=== PATIENT | male | born 1985 | race Caucasian/White ===

== ENCOUNTER 2018-10-01 11:40 | Emergency (ER) | payer OTHER ==
[2018-10-01] MEDS ORDERED: TETRACAINE 0.5% OPHTH SOLN 2 ML BOTTLE ONE (11:44)
[2018-10-01] MEDS ORDERED: FLUORESCEIN NA 1 EA STRIP ONE (11:44)
--- NOTE | 2018-10-01 11:50 | PDOC ---
Attending Attestation - Resident Resident Name: JudiLucía - ED Attending Attestation I have performed the following: I have examined & evaluated the patient, The case was reviewed & discussed with the resident, I agree w/resident's findings & plan, Exceptions are as noted - HPI HPI: 10/01/18 11:51 33yo M with no sig PMH presents to the ED with acute onset L eye pain since 7pm yesterday. 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 Endorses tearing in L eye, has photophobia. Did not note anything got into his eye. Denies blurry vision. Not a contacts wearer. Denies associted headache, focal weakness/numbness. No treatments tried. No fever, chills, cp/sob, abd pain, n/v/d. - Physicial Exam PE: 10/01/18 11:53 well appearing male NAD +2mm round fluorescein stain draft roller picker at 7 o'clock over iris OU 20/20 VA +conjunctival injection - Medical Decision Making 10/01/18 12:21 33yo M presents to the ED with L eye FB sensation, photophobia. Exam consistent with corneal abrasion. On eyelid eversion, no FB noted. No ulcers noted, pt is not contacts wearer. Well appearing othrewise with normal VA. Plan to give polytrrm gtt q6hrs for 7 days. pt has insurance claims adjuster to f/u with in 2-3 days. Return precautions given I discussed the physical exam findings, ancillary test results and final diagnoses with the patient. I answered all of the patient's questions. The patient was satisfied with the care received and felt comfortable with the discharge plan and treatment plan. The patient will call their primary care physician within 24 hours to arrange follow-up and will return to the Emergency Department with any new, persistent or worsening symptoms.
[2018-10-01 12:01] VITALS: BP 129/78; PULSE 83; TEMP 98; BMI 26.4
--- NOTE | 2018-10-01 12:16 | PDOC ---
History of Present Illness - General Chief Complaint: Eye Problem Stated Complaint: LEFT EYE FB SENSATION, DISCOMFORT Time Seen by Provider: 10/01/18 11:43 - History of Present Illness Initial Comments: 10/01/18 12:00 The patient is a 33 year old male with a PMH of seasonal allergies who presents to our ED c/o L eye pain. 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 Endorse associated tearing. Denies fevers/chills, visual changes, photophobia as well as trauma. Patient states he took 3 Advil last night and went to bed. As his pain was more severe when he woke up this morning he presented to our ED. The patient denies chest pain, shortness of breath, abdominal pain, nausea/ vomiting, diarrhea/constipation, dysuria/hematuria. NKDA Surgical: none reported Past History - Past Medical History Allergies/Adverse Reactions: Allergies Allergy/AdvReac Type Severity Reaction Status Date / Time No Known Allergies Allergy Verified 10/01/18 11:45 Home Medications: Ambulatory Orders Cholecalciferol (Vitamin D3) [Vitamin D3 -] 5,000 unit PO DAILY 10/01/18 Polymyxin B Sulf/Trimethoprim [Polymyxin B-Tmp Eye Drops] 10 ml OP QID #28 drops 10/01/18 COPD: No Other medical history: DENIES - Suicide/Smoking/Psychosocial Hx Smoking History: Never smoked Have you smoked in the past 12 months: No Information on smoking cessation initiated: No Hx Alcohol Use: No Drug/Substance Use Hx: No Review of Systems - Review of Systems Constitutional: No: Chills, Fever HEENTM: Yes: Eye Pain, Other (tearing, photophobia) Respiratory: No: Cough, Shortness of Breath Cardiac (ROS): No: Chest Pain, Lightheadedness, Palpitations, Syncope ABD/GI: No: Constipated, Diarrhea, Nausea, Vomiting *Physical Exam - Vital Signs Last Vital Signs Temp Pulse Resp BP Pulse Ox 98 F 83 16 129/78 96 10/01/18 11:40 10/01/18 11:40 10/01/18 11:40 10/01/18 11:40 10/01/18 11:40 - Physical Exam General Appearance: Yes: Nourished, Appropriately Dressed HEENT: positive: Normal Voice, Hearing Grossly Normal, Other (L eye: 1.5-2 mm corneal abrasion @ 7 o'clock position visible on flourescein staining; Visual acuity 20/25 B/L) Neck: positive: Trachea midline, Supple Respiratory/Chest: positive: Lungs Clear, Normal Breath Sounds Cardiovascular: positive: S1, S2 Gastrointestinal/Abdominal: positive: Normal Bowel Sounds, Soft Moderate Sedation - Procedure Monitoring Vital Signs: Procedure Monitoring Vital Signs Temperature 98 F 10/01/18 11:40 Pulse Rate 83 10/01/18 11:40 Respiratory Rate 16 10/01/18 11:40 Blood Pressure 129/78 10/01/18 11:40 O2 Sat by Pulse Oximetry (%) 96 10/01/18 11:40 Medical Decision Making - Medical Decision Making 10/01/18 17:55 33 year old male with 1 day h/o eye pain and associated lacrimation and photophobia. Denies h/o trauma. VS unremarkable. Visual acuity 20/25 B/L, no FB on eyelid eversion. Will evaluate for corneal abrasion. Given patient's clinical presentation, low suspicion for infectious etiology including cellulitis as well as other ocular pathology including scleritis, keratitis, uveitis. Flourescein stain shows corneal abrasion 1-2 cm @ 7 o'clock position in L cornea. Will discharge with antibiotic as well as ophthalmology follow-up. Clinical Impression: Corneal abrasion *DC/Admit/Observation/Transfer Diagnosis at time of Disposition: Corneal abrasion - Discharge Dispostion Disposition: HOME Condition at time of disposition: Stable - Prescriptions Prescriptions: Polymyxin B Sulf/Trimethoprim [Polymyxin B-Tmp Eye Drops] 10 ml OP QID #28 drops - Referrals Referrals: Dallas Cardenas MD [Primary Care Provider] - David Luis MD [Staff Physician] - - Patient Instructions Printed Discharge Instructions: DI for Corneal Abrasion Additional Instructions: An examination of your eye shows a small abrasion on your cornea. Information about this condition is included in your discharge papers. We have prescribed an antibiotic, please complete the entire course as prescribed. Follow up with an vocal teacher in the next 48 hours. We have provided a referral for you or you can call your insurance company for a list of referrals. You can take Tylenol (up to 4000 mg daily) for any pain or discomfort. Return to the Emergency Department for any new/worsening/concerning symptoms. - Post Discharge Activity
== END 2018-10-01 12:35 | disposition home or self-care (01) ==
LOC: FER 11:40
DX: S05.02XA Injury of conjunctiva and corneal abrasion without foreign body, left eye, initial encounter (principal); X58.XXXA Exposure to other specified factors, initial encounter; Y93.9 Activity, unspecified; Y92.9 Unspecified place or not applicable; J30.2 Other seasonal allergic rhinitis
CPT/HCPCS: 99282-25